=== PATIENT | female | born 1980 | race Two or more races ===

== ENCOUNTER → 2016-07-14 | Emergency (ER) | payer OTHER ==
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
== END | disposition home or self-care (01) ==
LOC: CED 14:14
DX: S16.1XXA Strain of muscle, fascia and tendon at neck level, initial encounter (principal); S29.012A Strain of muscle and tendon of back wall of thorax, initial encounter; S39.012A Strain of muscle, fascia and tendon of lower back, initial encounter; M62.838 Other muscle spasm
CPT/HCPCS: 72040; 72072; 72100; 99284